=== PATIENT | female | born 1990 ===

== ENCOUNTER 2018-05-19 16:50 | Inpatient (IN) | payer OTHER, SELFPAY ==
[~2018-05-19 16:50] MED LIST: ISOVUE-370 76%-LOCM 1 ML ONE
[2018-05-19] MEDS ORDERED: Succinylcholine Chloride 20 MG/ML 10 ml SYRINGE FS ONE (16:57)
[2018-05-19] MEDS ORDERED: Propofol 1,000 MG/100 ML VIAL IV ONE (17:14)
[2018-05-19 17:17] LABS: #Basophils 0.1 thou/uL (0.0-0.2); #Eosinphils 0.2 thou/uL (0.0-0.7); #Monocytes 0.6 thou/uL (0.11-0.59); %Basophils 0.4 % (0.0-1.0); %Lymphocytes 17.8 % (21.0-51.0); %Monocytes 3.8 % (0.0-10.0); Hemoglobin 14.6 g/dL (12.0-16.0); Mean Corpuscular HGB CONC 34.3 g/dL (32.0-36.0); Mean Corpuscular Hemoglobin 30.5 pg (27.0-31.0); Mean Platelet Volume 7.8 fL (7.4-10.4); Platelet Count 215 thou/uL (130-400); RBC Distribution Width 13.7 % (11.5-14.5); Red Blood Cell (RBC) Count 4.78 mill/uL (4.20-5.40); White Blood Cell (WBC) Count 16.8 thou/uL (4.8-10.8)
[2018-05-19 17:26] LABS: BHCG - Serum Negative (NEGATIVE); Pregs Control Background? CLEAR/WHITE (CLR/WHITE); Pregs Control Bar Appear? YES (CONTROL BAR)
[2018-05-19 17:28] LABS: INR-International Normal Ratio 0.9; Prothrombin Time 12.7 SEC (12.0-14.7)
[2018-05-19 17:30] LABS: PTT 21.3 SEC (22.9-36.1)
[2018-05-19 17:37] LABS: Bilirubin Negative (Negative); Blood, Urine Trace (Negative); Clarity CLEAR (Clear); Glucose, Urine (Dipstick) Negative (Negative); Leukocyte Negative (Negative); Nitrite Negative (Negative); Protein, Urine (Dipstick) Negative (Neg-Trace); Specific Gravity, Urine 1.003 (1.002-1.036); Urobilinogen 0.2 mg/dL (0.2-1.0)
[2018-05-19 17:39] LABS: Bacteria/HPF None Seen HPF (None Seen); Hyaline Casts/LPF 4-6 HYALINE CAST LPF (0-3 Hyaline); Pathc Cast-AUWi Flag 1.01 (0-2.49); RBC/HPF 0-3 HPF (0-3); Squamous Epithelial None Seen HPF (0-3); WBC/HPF 0-3 HPF (0-3)
[2018-05-19 17:48] LABS: ALT (SGPT) 23 U/L (8-55); AST (SGOT) 38 U/L (5-34); Albumin 4.8 g/dL (3.5-5.0); Alcohol 314 mg/dL (Less than 10); Alkaline Phosphatase 83 U/L (40-150); Anion Gap 20 mmol/L (10-20); BUN (Urea Nitrogen) 7 mg/dL (7.0-18.7); Bilirubin, Total 0.3 mg/dL (0.2-1.2); Calc. Creatinine Clearance 0 mL/min (70-130); Calcium 9.4 mg/dL (7.8-10.44); Carbon Dioxide 17 mmol/L (22-29); Chloride 104 mmol/L (98-107); Estimated GFR-MDRD Greater than 90; Globulin 3.7 g/dL (2.4-3.5); Glucose 109 mg/dL (70-105); Lipase 23 U/L (8-78); Potassium 3.8 mmol/L (3.5-5.1); Protein, Total 8.5 g/dL (6.0-8.3); Sodium 137 mmol/L (136-145)
[2018-05-19 17:48] LABS: Actual Bicarbonate (HCO3a) 18.8 mEq/L (22-28); Base Excess (BEa) -4.1 mEq/L (-2.0 to +3.0); CO2 Tension 28.1 mmHg (35.0-45.0); O2 Tension (PaO2) 212.6 mmHg (80.0-100.0); pH, Arterial 7.44 (7.35-7.45)
[2018-05-19 17:49] LABS: Carboxyhemoglobin (COHb) 2.2 gm% (0.0-3.0); Hemoglobin (Hb) 12.5 g/dL (12.0-16.0); Potassium - ABG Lab 2.8 mmol/L (3.70-5.30)
[2018-05-19 17:50] LABS: ALV-art Gradient 108.775 (0-20); Analyzer IN Cardio ER; Calcium, Ionized 1.1 mmol/L (1.12-1.30); Puncture Site LB
[2018-05-19] MEDS ORDERED: Adacel (T-DAP) 0.5 ML VIAL ONE (17:58)
[2018-05-19 18:15] LABS: Acetaminophen Less than 6.0 mcg/mL (10.0-30.0); Salicylate Less than 8.0 mg/dL (15.0-30.0)
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
[2018-05-19] MEDS ORDERED: Fentanyl 100 MCG/2 ML VIAL ONE ×2 (18:37→19:01)
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
[2018-05-19] MEDS ORDERED: fentaNYL Citrate/PF 2,000 MCG in Sodium Chloride 0.9% 60 ML IV SCH ×2 (18:49→20:25)
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
[2018-05-19] MEDS ORDERED: Dextrose 5% in Water 1,000 ML IV PRN (20:19)
[2018-05-19] MEDS ORDERED: Dextrose 50% Abboject 50 ML SYRINGE SLOW IVP PRN (20:19)
[2018-05-19] MEDS ORDERED: Ventilator Sedation Protocol 1 EACH FS ONE (20:19)
[2018-05-19] MEDS ORDERED: Ondansetron HCl/PF 4 MG/2 ML Vial IVP PRN (20:19)
[2018-05-19] MEDS ORDERED: hydrALAZINE 20 MG/ML VIAL SLOW IVP PRN (20:19)
[2018-05-19] MEDS ORDERED: DISCONTINUE PREVIOUS NARCOTIC PAIN MEDICATIONS AND BENZODIAZEPINES FS SCH (20:25)
[2018-05-19] MEDS ORDERED: Fentanyl CADD 250 ML IVPB SCH (20:25)
[2018-05-19] MEDS ORDERED: Propofol BOLUS 1,000 MG/100 ML VIAL IV PRN (20:25)
[2018-05-19] MEDS ORDERED: Lorazepam 2 MG/ML VIAL SLOW IVP PRN (20:25)
[2018-05-19] MEDS ORDERED: Fentanyl BOLUS 250 ML IVPB PRN (20:25)
[2018-05-19] MEDS ORDERED: Propofol 1,000 MG/100 ML VIAL IV PRN (20:25)
[2018-05-19] MEDS: Sodium Chloride 0.9% 1,000 ML IV SCH (20:27)
[2018-05-19] MEDS: Famotidine/PF 20 mg/2ml Vial SLOW IVP SCH (20:28)
[2018-05-19 20:45] VITALS: BMI 25.8
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
[2018-05-20] MEDS: Sodium Chloride 0.9% 1,000 ML IV SCH (05:19)
[2018-05-20] MEDS: Famotidine/PF 20 mg/2ml Vial SLOW IVP SCH (07:58)
[2018-05-20] MEDS ORDERED: Acetaminophen 500 MG TAB PO SCH (09:00)
[2018-05-20 11:22] VITALS: TEMP 98.5
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
--- NOTE | 2018-05-20 11:52 | RAD ---
LEFT ANKLE THREE VIEWS: HISTORY: Pain. COMPARISON: None. FINDINGS: No fracture or malalignment. The soft tissues are unremarkable. Mild lateral malleolar soft tissue swelling. IMPRESSION: No acute fracture or malalignment. POS: [facility]
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
[2018-05-20] MEDS ORDERED: Ibuprofen 600 MG TAB PO SCH (14:00)
[2018-05-20 14:09] VITALS: BP 112/60
--- NOTE | 2018-05-25 13:07 | EKG ---
Test Reason : Blood Pressure : / mmHG Vent. Rate : 082 BPM Atrial Rate : 082 BPM P-R Int : 146 ms QRS Dur : 086 ms QT Int : 384 ms P-R-T Axes : 043 073 048 degrees QTc Int : 448 ms Normal sinus rhythm Normal ECG Confirmed by EDWARD HARDEN DO ([id number]), online editor JONATHAN DUMONT ([id number]) on 05/25/2018 1:07:15 PM Referred By: Confirmed By:EDWARD HARDEN DO
== END 2018-05-20 15:00 | DRG 896 ==
LOC: ERS 16:50 → CCU 19:43 → EEVIPCON 19:43
PROVIDERS: ADMIT Surgery; ATTEND Surgery
PROC: 0BH17EZ Insertion of Endotracheal Airway into Trachea, Via Natural or Artificial Opening (ICD-10-PCS; principal; 2018-05-19)
PROC: 5A1935Z Respiratory Ventilation, Less than 24 Consecutive Hours (ICD-10-PCS; 2018-05-19)
PROC: 0D9670Z Drainage of Stomach with Drainage Device, Via Natural or Artificial Opening (ICD-10-PCS; 2018-05-19)
DX: F10.129 Alcohol abuse with intoxication, unspecified (principal); J96.00 Acute respiratory failure, unspecified whether with hypoxia or hypercapnia; S00.83XA Contusion of other part of head, initial encounter; V43.52XA Car driver injured in collision with other type car in traffic accident, initial encounter; Y92.410 Unspecified street and highway as the place of occurrence of the external cause; S06.0X0A Concussion without loss of consciousness, initial encounter
CPT/HCPCS: 31500; 51702; 70450; 70486; 71045; 71260; 72125; 72170; 74177; 80053; 80307; 81003; 81015; 82150; 82805; 83690; 84703; 85025; 85610; 85730; 90471; 90715; 93005; 94002; 94003; 96361; 96365; 96376; 99292; G0390; G8987-GO-CJ; G8988-GO-CI; J2704; J3010; J7050; S0028